=== PATIENT | female | born 1940 | race Caucasian/White ===

== ENCOUNTER 2024-05-15 09:04 | Emergency (ER) | payer MEDICARE, BC, SELFPAY ==
[2024-05-15] VITALS (21 sets, daily range): BP systolic 123–172; BP diastolic 66–84; PULSE 56–89; RESP 18; TEMP 35.6; O2SAT 91–100; BMI 25.2
--- NOTE | 2024-05-15 09:30 | CRLHL7_ITS ---
For Patients: As a result of the Century Cures Act, medical imaging exams and procedure reports are released immediately into your electronic medical record. You may view this report before your referring provider. If you have questions, please contact your health care provider. INDICATION: Left facial droop. COMPARISON: 03/30/2015 TECHNIQUE: CT of the head without intravenous contrast. Please note that all CT scans at this facility use dose modulation, iterative reconstruction, and/or weight-based dosing when appropriate to reduce radiation dose to as low as reasonably achievable. FINDINGS: Preserved pena-white matter differentiation. Chronic bilateral symmetrical cerebral white matter mildly heterogeneous hypodensities consistent with chronic ischemic gliotic changes. No hydrocephalus. No mass or mass effect. No intracranial hemorrhage. Intact skull base and cranial vault. Visualized orbits are without significant incidental findings. Visualized paranasal sinuses and mastoid air cells are clear. Right middle turbinate eveline bullosa. IMPRESSION: No acute infarct, intracranial mass, mass effect, hemorrhage or hydrocephalus. Please note that all CT scans at this facility use dose modulation, iterative reconstruction, and/or weight-based dosing when appropriate to reduce radiation dose to as low as reasonably achievable. Dictated by Onofre Infante MD @ 05/15/2024 9:48:42 AM (Electronically Signed)
--- NOTE | 2024-05-15 10:01 | CRLHL7_ITS ---
For Patients: As a result of the Century Cures Act, medical imaging exams and procedure reports are released immediately into your electronic medical record. You may view this report before your referring provider. If you have questions, please contact your health care provider. Indication: Left facial droop Technique: Multiplanar, multisequence MRI of the brain obtained without contrast. Comparison: Earlier same day CT head Findings: No evidence for recent hemorrhage or infarct. No midline shift, hydrocephalus or herniation. Generalized cerebral volume loss. Focal and confluent regions of white matter FLAIR hyperintensity, typical of chronic microangiopathy. A few punctate foci of susceptibility artifact at the right posterior cerebral hemisphere, suggestive of chronic microhemorrhages, with presumed demineralization changes at the bilateral basal ganglia. Unremarkable midline structures. Major expected intracranial flow voids are visualized. Hyperostosis frontalis interna. Minor ethmoid air cell mucosal thickening. No mastoid effusion. Bilateral lens implants. Impression: 1. No evidence of acute intracranial abnormality. 2. Generalized cerebral volume loss with moderately advanced chronic microangiopathy changes and a few chronic microhemorrhages. Dictated by Caro Seo MD @ 05/15/2024 12:02:13 PM (Electronically Signed)
[2024-05-15 10:32] LABS: Lactate* 1.6 mmol/L (0.5-1.9)
[2024-05-15 10:37] LABS: Basophils Percent Auto 0.2 % (0.0-3.0); Eosinophils Percent Auto 1.4 % (0.0-7.0); Hematocrit 43.9 % (33.0-51.0); Hemoglobin* 14.3 gm/dL (12.0-16.0); Immature Granulocytes Pct Auto 0.1 %; Lymphocytes Percent Auto 9.5 % (20-44); Mean Corpuscular HGB Conc 33 gm/dL (32-36); Mean Corpuscular Hemoglobin 27 pg (26-34); Mean Corpuscular Volume 84 fL (80-100); Monocytes Percent Auto 4.2 % (0.0-11.0); Neutrophils Percent Auto 84.6 % (42.0-72.0); Platelet Count* 262 K/uL (140-440); RDW Coefficient of Variation % 13.6 % (11.5-15.5); Red Blood Count 5.26 m/uL (4.00-5.20); White Blood Count* 12.52 K/uL (4.50-11.00)
[2024-05-15 10:55] LABS: PCR FLU A Negative PCR FLU A (Negative); PCR FLU B Negative PCR FLU B (Negative); PCR RSV Negative PCR RSV (Negative); SARS PCR* Negative SARS-CoV-2 (Negative)
--- NOTE | 2024-05-15 10:55 | ED.GENADULT ---
HPI - General Adult General Date Seen: 05/15/24 Chief complaint: Neuro Symptoms/Altered Deficit Stated complaint: Vomiting, sweaty, fast heartbeat Time Seen by Provider: 05/15/24 09:08 Source: patient Mode of arrival: ambulatory Limitations: no limitations History of Present Illness HPI narrative: Patient is an 83-year-old female history of dementia and beginning stages presenting to the emergency department for weakness, vomiting. Patient was doing well as morning. She is up in [place] visiting family. The at 08:00 o'clock she was normal but then shortly after that she told her family she was not feeling well and then proceeded to vomit. She also became diaphoretic at this time. Initially was unable to tell nursing staff who president or the date was. By time I spoke to a she did know who the print support specialist was. Did not know the month. Was able to state her age. Is able to follow all commands appropriately and seems to be answering most questions appropriately. No history of strokes before. No history of blood clots. Her states he check her blood pressure daily and usually in the 120s to low 130s in today was in the 160 systolic. She does not take any blood pressure medication. They also states she seemed a little bit more confused than normal. Is also abnormal for her to be weak. She then started complaining about shortness of breath and lab point they decided to bring her into the hospital. Denies any chest pain. States she has some mild abdominal pain. Denies headache, vision changes, numbness, diarrhea, constipation. Related Data Home Medications ?Medication ?Instructions ?Recorded ?Confirmed donepezil 10 mg tablet 10 mg PO QAM 05/15/24 05/15/24 memantine 5 mg tablet 5 mg PO BID 05/15/24 05/15/24 nitrofurantoin 1 cap PO BID 05/15/24 05/15/24 monohydrate/macrocrystals 100 mg capsule Previous Rx's ?Medication ?Instructions ?Recorded cephalexin 500 mg capsule 500 mg PO QID #20 caps 05/15/24 Allergies Allergy/AdvReac Type Severity Reaction Status Date / Time No Known Drug Allergies Allergy Verified 05/15/24 09:24 Review of Systems Status of ROS: Reports: 10 or more systems reviewed and unremarkable except as noted in History and below PFSH PFSH Social History Smoking Status: Never smoker Do you use any of these nicotine containing products: None Second hand tobacco smoke exposure: No How often do you have a drink containing alcohol: never How often do you have six or more drinks on one occasion: Never AUDIT-C Alcohol total score: 0 Non-prescribed substance use: denies use service: No Exam Narrative: Exam Narrative: Const: Well-nourished, Well-developed, in mild distress Eyes: PERRL, no conjunctival injection, and symmetrical lids HENT: Atraumatic external nose and ears. Moist mucous membranes. Neck: Symmetric, trachea midline, No thyromegaly. CVS: RRR, No murmurs or gallops. Peripheral pulses 2+ and equal in all extremities RESP: Unlabored respiratory effort. Clear to auscultation bilaterally. GI: Nontender/Nondistended, No rebound or guarding. MSK:Extremities w/o deformity, Normal Active ROM Skin: Warm, Dry. No rashes or lesions. Neuro: Normal Muscle tone, Cranial nerves 2-12 grossly intact other than some mild left facial droop, normal [id number]-[id number], normal [id number]-[id number], normal gait, normal strength 5/5 upper lower extremities bilaterally, normal sensation upper and lower extremities bilaterally, normal rapid alternating movements. Psych: Awake, Alert, & Oriented to self, place, situation. Appropriate mood and affect. Const: Vital Signs, click to edit/add: Vital Signs - 24 hr 05/15/24 09:18 05/15/24 09:41 05/15/24 09:43 Temperature 96.0 F L Pulse Rate 74 73 Pulse Rate [Left P ulse Oximeter] 63 Respiratory Rate 18 Blood Pressure 153/70 H Blood Pressure [Le ft Upper Arm] 168/75 H Pulse Oximetry 94 96 97 Oxygen Delivery Me thod Room Air 05/15/24 09:45 05/15/24 09:46 05/15/24 10:02 Temperature Pulse Rate 72 77 Pulse Rate [Left P ulse Oximeter] Respiratory Rate Blood Pressure 123/84 172/67 H Blood Pressure [Le ft Upper Arm] Pulse Oximetry 96 97 Oxygen Delivery Me thod 05/15/24 10:06 05/15/24 10:15 05/15/24 10:17 Temperature Pulse Rate 74 75 81 Pulse Rate [Left P ulse Oximeter] Respiratory Rate Blood Pressure 167/66 H Blood Pressure [Le ft Upper Arm] Pulse Oximetry 99 99 98 Oxygen Delivery Me thod 05/15/24 10:18 05/15/24 10:30 05/15/24 10:32 Temperature Pulse Rate 59 L 65 56 L Pulse Rate [Left P ulse Oximeter] Respiratory Rate Blood Pressure 161/70 H Blood Pressure [Le ft Upper Arm] Pulse Oximetry 97 96 100 Oxygen Delivery Me thod 05/15/24 10:45 05/15/24 10:47 05/15/24 11:00 Temperature Pulse Rate 74 68 70 Pulse Rate [Left P ulse Oximeter] Respiratory Rate Blood Pressure 152/71 H Blood Pressure [Le ft Upper Arm] Pulse Oximetry 91 96 94 Oxygen Delivery Me thod 05/15/24 11:01 05/15/24 11:15 05/15/24 11:17 Temperature Pulse Rate 60 64 74 Pulse Rate [Left P ulse Oximeter] Respiratory Rate Blood Pressure 162/72 H 157/71 H Blood Pressure [Le ft Upper Arm] Pulse Oximetry 96 99 99 Oxygen Delivery Me thod 05/15/24 12:11 05/15/24 12:15 05/15/24 12:30 Temperature Pulse Rate 89 82 82 Pulse Rate [Left P ulse Oximeter] Respiratory Rate Blood Pressure Blood Pressure [Le ft Upper Arm] Pulse Oximetry 97 97 98 Oxygen Delivery Me thod Course Vital Signs Vital signs: Initial Vital Signs Temperature 96.0 F L 05/15/24 09:18 Temperature Source Temporal Artery Scan 05/15/24 09:18 Pulse Rate 63 05/15/24 09:18 Pulse Rhythm Regular 05/15/24 09:18 Pulse Strength 3+ Normal 05/15/24 09:18 Respiratory Rate 18 05/15/24 09:18 Blood Pressure 168/75 H 05/15/24 09:18 Blood Pressure Mean 106 H 05/15/24 09:18 Blood Pressure Position Sitting 05/15/24 09:18 Pulse Oximetry 94 05/15/24 09:18 Oxygen Delivery Method Room Air 05/15/24 09:18 Vital Signs Temperature 96.0 F L 05/15/24 09:18 Pulse Rate 63 05/15/24 09:18 Respiratory Rate 18 05/15/24 09:18 Blood Pressure 168/75 H 05/15/24 09:18 Pulse Oximetry 94 05/15/24 09:18 Oxygen Delivery Method Room Air 05/15/24 09:18 Temperature 96.0 F L 05/15/24 09:18 Pulse Rate 82 05/15/24 12:30 Respiratory Rate 18 05/15/24 09:18 Blood Pressure 157/71 H 05/15/24 11:17 Pulse Oximetry 98 05/15/24 12:30 Oxygen Delivery Method Room Air 05/15/24 09:18 Medical Decision Making [facility] Narrative Medical decision making narrative: Patient is an 83-year-old female with a history of dementia presenting for generalized weakness and increased confusion. During my exam I noted she had some very slight left facial droop and I called a code stroke. I spoke to Dr. Wilson and explained she mostly has sternal I symptoms but there was this mild left facial droop. CT head was ordered and he recommend to go straight to an MRI after that. This was also ordered. Symptoms seem most likely related to some type of infection as she is diaphoretic and already has dementia. She has some mild abdominal tenderness is mildly short of breath. Will do a D-dimer to look for signs of a PE. Also were COVID/flu/RSV, troponin, CBC, CMP, lactate, urinalysis, EKG. D-dimer within normal limits and CT scan of the chest without contrast and a CT scan of the abdomen pelvis with contrast was ordered. CBC is slightly high white count 12.52 in she also has a temperature of 96? and less meets SIRS criteria. Lactate was ordered. I did offer IV fluids but family prefers oral fluids at this time as she is doing much better. Rest of CBC/CMP shows no concerning abnormalities. Troponin within normal limits. EKG has a slightly elongated QT interval but she overall is looking well is not having any lightheadedness or dizziness. Do not believe this is related to her symptoms at this time. Urinalysis shows +1 leukocyte esterase with blood in the urine and a few bacteria but no clear sign of UTI. COVID/flu/RSV is negative. CT scan of the head MRI showed no acute concerning abnormality. No signs of a stroke at this time. CT scan of the chest showed signs of a burst breast implant. Patient is not having any pain here at this time. This can be managed outpatient does not require any emergent surgery. CT scan abdomen pelvis shows signs of cystitis. There is also a large fecal burden in the rectum. When I spoke to the patient about constipation she has been having issues with it but has not taking anything recently for her constipation since she arrived from [place]. After this though she was able to have a large bowel movement and I do not believe rectal disimpaction is necessary at this time. Did inform her to take stool softeners daily. Her and her family agreeable to this plan. They states she is acting back to normal and they feel safe for discharge. I spoke to her and her family about admission versus discharge been considering her great improvement in her symptoms and overall feeling much better a feels safe for discharge. They state they are staying only 1/2 mi away and will return immediately if any symptoms worsen again. I will treat this as a UTI based off the CT results. Did do a lactate and it is slightly elevated 2.4 she otherwise looks wonderful and is moving around the room and able to walk to the bathroom without any issues. Family states she is completely back to normal at this time. Considering all of this I do believe she is safe for discharge as she looks otherwise good. Strict return precautions were given. They are agreeable to this plan. She will be started on Keflex. Lab Data Labs: Lab Results 05/15/24 05/15/24 05/15/24 Range/Units 10:26 11:28 12:49 WBC 12.52 H (4.50-11.00) K/uL RBC 5.26 H (4.00-5.20) m/uL Hgb 14.3 (12.0-16.0) gm/dL Hct 43.9 (33.0-51.0) % MCV 84 (80-100) fL MCH 27 (26-34) pg MCHC 33 (32-36) gm/dL RDW Coeff of Jonathan 13.6 (11.5-15.5) % Plt Count 262 (140-440) K/uL Neut % (Auto) 84.6 H (42.0-72.0) % Lymph % (Auto) 9.5 L (20-44) % [place] % (Auto) 4.2 (0.0-11.0) % Eos % (Auto) 1.4 (0.0-7.0) % Baso % (Auto) 0.2 (0.0-3.0) % Neut # (Auto) 10.60 H (1.7-7.0) K/uL Lymph # (Auto) 1.20 (0.90-2.90) K/uL [place] # (Auto) 0.50 (0.00-0.90) K/UL Eos # (Auto) 0.20 (0.00-0.50) K/uL Baso # (Auto) 0.00 (0.00-0.30) K/uL Abs Immat Gran (auto) 0.00 (0.00-0.30) K/uL Imm/Tot Granulo (auto) 0.1 % D-Dimer Quant (PE/DVT) 0.39 (0.00-0.50) ug/ml Sodium 139 (135-149) mmol/L Potassium 3.8 (3.6-5.1) mmol/L Chloride 108 (96-114) mmol/L Carbon Dioxide 23 (20-32) mmol/L Anion Gap 8 (7-15) mEq/L BUN 17 (7-30) mg/dL Creatinine 0.9 (0.5-1.5) mg/dL Estimated Creat Clear 34.90 Estimated GFR 64 ml/min Glucose 124 H (60-115) mg/dL Lactate 1.6 (0.5-1.9) mmol/L Calcium 9.5 (8.4-10.6) mg/dL Total Bilirubin 0.8 (0.1-1.5) mg/dL AST 33 (12-35) U/L ALT 19 (4-35) U/L Alkaline Phosphatase 92 (40-150) U/L Troponin I < 0.01 L (0.01-0.04) ng/mL Total Protein 7.4 (6.0-8.3) g/dL Albumin 4.4 (3.3-5.0) g/dL Urine Color Yellow (Yellow) Urine Appearance Clear (Clear) Urine pH 7.5 (5.0-8.5) Ur Specific [place] 1.020 (1.000-1.030) Urine Protein Negative (Negative) Urine Glucose (UA) Negative (Negative) Urine Ketones Negative (Negative) Urine Blood 2+ A (Negative) Urine Nitrite Negative (Negative) Urine Bilirubin Negative (Negative) Urine Urobilinogen 0.2 (0.2-1.0) Ur Leukocyte Esterase 1+ A (Negative) Urine RBC 2-5 A (0-2) Urine WBC 2-5 (0-5) Ur Squamous Epith Cells None (None-Few) Urine Bacteria Few A (None) SARS-CoV-2 (PCR) (Negative) Influenza Type A (PCR) (Negative) Influenza Type B (PCR) (Negative) RSV (PCR) (Negative) Lab Acknowledgement New Spec Needed 05/15/24 05/15/24 Range/Units 13:01 Unknown WBC (4.50-11.00) K/uL RBC (4.00-5.20) m/uL Hgb (12.0-16.0) gm/dL Hct (33.0-51.0) % MCV (80-100) fL MCH (26-34) pg MCHC (32-36) gm/dL RDW Coeff of Jonathan (11.5-15.5) % Plt Count (140-440) K/uL Neut % (Auto) (42.0-72.0) % Lymph % (Auto) (20-44) % [place] % (Auto) (0.0-11.0) % Eos % (Auto) (0.0-7.0) % Baso % (Auto) (0.0-3.0) % Neut # (Auto) (1.7-7.0) K/uL Lymph # (Auto) (0.90-2.90) K/uL [place] # (Auto) (0.00-0.90) K/UL Eos # (Auto) (0.00-0.50) K/uL Baso # (Auto) (0.00-0.30) K/uL Abs Immat Gran (auto) (0.00-0.30) K/uL Imm/Tot Granulo (auto) % D-Dimer Quant (PE/DVT) (0.00-0.50) ug/ml Sodium (135-149) mmol/L Potassium (3.6-5.1) mmol/L Chloride (96-114) mmol/L Carbon Dioxide (20-32) mmol/L Anion Gap (7-15) mEq/L BUN (7-30) mg/dL Creatinine (0.5-1.5) mg/dL Estimated Creat Clear Estimated GFR ml/min Glucose (60-115) mg/dL Lactate 2.4 H (0.5-1.9) mmol/L Calcium (8.4-10.6) mg/dL Total Bilirubin (0.1-1.5) mg/dL AST (12-35) U/L ALT (4-35) U/L Alkaline Phosphatase (40-150) U/L Troponin I (0.01-0.04) ng/mL Total Protein (6.0-8.3) g/dL Albumin (3.3-5.0) g/dL Urine Color (Yellow) Urine Appearance (Clear) Urine pH (5.0-8.5) Ur Specific [place] (1.000-1.030) Urine Protein (Negative) Urine Glucose (UA) (Negative) Urine Ketones (Negative) Urine Blood (Negative) Urine Nitrite (Negative) Urine Bilirubin (Negative) Urine Urobilinogen (0.2-1.0) Ur Leukocyte Esterase (Negative) Urine RBC (0-2) Urine WBC (0-5) Ur Squamous Epith Cells (None-Few) Urine Bacteria (None) SARS-CoV-2 (PCR) Negative SARS-CoV-2 (Negative) Influenza Type A (PCR) Negative PCR FLU A (Negative) Influenza Type B (PCR) Negative PCR FLU B (Negative) RSV (PCR) Negative PCR RSV (Negative) Lab Acknowledgement Imaging Data CT scan - head: Attestation: I have reviewed the pertinent imaging results. Radiologist's impression: No acute infarct, intracranial mass, mass effect, hemorrhage or hydrocephalus. Please note that all CT scans at this facility use dose modulation, iterative reconstruction, and/or weight-based dosing when appropriate to reduce radiation dose to as low as reasonably achievable. Dictated by Onofre Infante MD @ 05/15/2024 9:48:42 AM MR Brain: Attestation: I have reviewed the pertinent imaging results. Radiologist's impression: 1. No evidence of acute intracranial abnormality. 2. Generalized cerebral volume loss with moderately advanced chronic microangiopathy changes and a few chronic microhemorrhages. Dictated by Caro Seo MD @ 05/15/2024 12:02:[address] scan - chest: Attestation: I have reviewed the pertinent imaging results. Radiologist's impression: 1. No focal consolidation. Few small foci of mucous plugging in the right upper lobe. 2. Evidence of capsular rupture of the right breast implant. Please note that all CT scans at this facility use dose modulation, iterative reconstruction, and/or weight-based dosing when appropriate to reduce radiation dose to as low as reasonably achievable. Dictated by Claire Rivera MD @ 05/15/2024 12:48:[address] scan - abdomen/pelvis: Attestation: I have reviewed the pertinent imaging results. Radiologist's impression: 1. Diffuse circumferential urinary bladder wall thickening with pericystic inflammation, compatible with cystitis. 2. Large fecal burden is present within the rectum, which may reflect constipation. 3. Incidentally noted small focal enhancing nodules along the duodenal wall, indeterminate. Recommend further evaluation with endoscopy, on a nonemergent basis. Please note that all CT scans at this facility use dose modulation, iterative reconstruction, and/or weight-based dosing when appropriate to reduce radiation dose to as low as reasonably achievable. Dictated by Claire Rivera MD @ 05/15/2024 12:34:17 PM ECG Data Attestation: I personally reviewed and interpreted this ECG as follows: Prior ECG tracings: not available for review Interpretation: Normal sinus rhythm a rate of 66 beats per minute, mildly prolonged QT interval, other intervals are normal. No ST or T-wave abnormalities. Discharge Plan Discharge Clinical Impression: Urinary tract infection Qualifiers: Urinary tract infection type: acute cystitis Hematuria presence: with hematuria Qualified Code(s): N30.01 - Acute cystitis with hematuria Patient Disposition: Home w/ Parent or Adult Condition: Improved Instructions: Urinary Tract Infection in Older Adults (ED) Additional Instructions: Have her take her antibiotics as directed. Make sure she is using stool softeners until she is having normal bowel movement. With CT scan of her abdomen and pelvis also found some nodules along the beginning of the small intestine. She should have an outpatient endoscopy done on a nonemergent basis. If she develops worsening symptoms again please return to the emergency department immediately. Prescriptions: New cephalexin 500 mg capsule 500 mg PO QID Qty: 20 0RF No Action donepezil 10 mg tablet 10 mg PO QAM memantine 5 mg tablet 5 mg PO BID nitrofurantoin monohyd/m-cryst 100 mg capsule 1 cap PO BID Follow Up/Referrals: Provider,Not a Local [Primary Care Provider] - Stand Alone Forms: [facility] Info Instructions
[2024-05-15 10:59] LABS: Albumin* 4.4 g/dL (3.3-5.0); Chloride* 108 mmol/L (96-114); Potassium* 3.8 mmol/L (3.6-5.1); Sodium* 139 mmol/L (135-149)
[2024-05-15 11:01] LABS: Creatinine* 0.9 mg/dL (0.5-1.5); Estimated Glomerular Filt Rate 64 ml/min
[2024-05-15 11:02] LABS: Alanine Aminotransferase* 19 U/L (4-35); Alkaline Phosphatase* 92 U/L (40-150); Anion Gap 8 mEq/L (7-15); Aspartate Amino Transferase* 33 U/L (12-35); Bilirubin Total* 0.8 mg/dL (0.1-1.5); Blood Urea Nitrogen* 17 mg/dL (7-30); Calcium* 9.5 mg/dL (8.4-10.6); Carbon Dioxide* 23 mmol/L (20-32); Glucose* 124 mg/dL (60-115); Slide Review Reflex No; Total Protein* 7.4 g/dL (6.0-8.3)
[2024-05-15 11:03] LABS: D Dimer Quantitative* 0.39 ug/ml (0.00-0.50)
[2024-05-15 11:14] LABS: Troponin I* < 0.01 ng/mL (0.01-0.04)
--- NOTE | 2024-05-15 11:25 | CRLHL7_ITS ---
For Patients: As a result of the Century Cures Act, medical imaging exams and procedure reports are released immediately into your electronic medical record. You may view this report before your referring provider. If you have questions, please contact your health care provider. INDICATION: Shortness of breath. TECHNIQUE: CT chest without IV contrast. COMPARISON: None. FINDINGS: Lungs and pleura: No focal consolidation. Few small foci of mucous plugging in the right upper lobe. Heart and vasculature: No cardiomegaly, no pericardial effusion. Atherosclerotic coronary artery calcifications. Thyroid and lower neck: No suspicious thyroid nodule. Mediastinum/sarath: No lymphadenopathy. Chest wall: No axillary lymphadenopathy. Bilateral breast implants. Evidence of capsular rupture of the right breast implant. Upper abdomen: See separate report of same day CT abdomen/pelvis. Bones: Multilevel degenerative changes of the spine. Bones are osteopenic. T8 vertebral body hemangioma noted. IMPRESSION: 1. No focal consolidation. Few small foci of mucous plugging in the right upper lobe. 2. Evidence of capsular rupture of the right breast implant. Please note that all CT scans at this facility use dose modulation, iterative reconstruction, and/or weight-based dosing when appropriate to reduce radiation dose to as low as reasonably achievable. Dictated by Claire Rivera MD @ 05/15/2024 12:48:03 PM (Electronically Signed)
--- NOTE | 2024-05-15 11:25 | CRLHL7_ITS ---
For Patients: As a result of the Century Cures Act, medical imaging exams and procedure reports are released immediately into your electronic medical record. You may view this report before your referring provider. If you have questions, please contact your health care provider. INDICATION: Diffuse abdominal pain. TECHNIQUE: CT abdomen and pelvis acquired with 68 mL Isovue 370 contrast. COMPARISON: None. FINDINGS: Lower chest: See separate report of same day CT chest. Liver: No suspicious focal hepatic lesion. Gallbladder and bile ducts: Unremarkable. Pancreas: Unremarkable. Spleen: To small to characterize hypodense lesion in the inferior spleen, statistically benign. Adrenal glands: Unremarkable. Kidneys: Kidneys enhance symmetrically, without hydronephrosis. 3.0 cm simple appearing exophytic cyst in the lower pole of the left kidney, as well as multiple small left parapelvic cysts. Additional too small to characterize hypodense bilateral renal lesions are noted. Retroperitoneum: No lymphadenopathy. Bowel and mesentery: Large fecal burden is present within the rectum. Scattered colonic diverticulosis, without evidence of acute diverticulitis. No significant ascites. There are small focal enhancing nodules along the duodenal wall, for example a 0.6 cm nodule in the 3rd portion of the duodenum (series 2, image 48). Bladder: Diffuse circumferential bladder wall thickening with pericystic inflammation. Reproductive organs: Post hysterectomy. Pelvic lymph nodes: No lymphadenopathy. Vessels: Scattered atherosclerotic calcifications. Abdominal wall: No acute abdominal wall abnormality. Bones: Multilevel degenerative changes of the spine. Bones are osteopenic. IMPRESSION: 1. Diffuse circumferential urinary bladder wall thickening with pericystic inflammation, compatible with cystitis. 2. Large fecal burden is present within the rectum, which may reflect constipation. 3. Incidentally noted small focal enhancing nodules along the duodenal wall, indeterminate. Recommend further evaluation with endoscopy, on a nonemergent basis. Please note that all CT scans at this facility use dose modulation, iterative reconstruction, and/or weight-based dosing when appropriate to reduce radiation dose to as low as reasonably achievable. Dictated by Claire Rivera MD @ 05/15/2024 12:34:17 PM (Electronically Signed)
[2024-05-15 11:37] LABS: Appearance Urine Clear (Clear); Bilirubin Urine Negative (Negative); Blood Urine 2+ (Negative); Color Urine Yellow (Yellow); Glucose Urine Negative (Negative); Ketones Urine Negative (Negative); Leukocyte Esterase Urine 1+ (Negative); Nitrite Urine Negative (Negative); Protein Urine Negative (Negative); Urobilinogen Urine 0.2 (0.2-1.0); pH Urine 7.5 (5.0-8.5)
[2024-05-15 11:54] LABS: Bacteria Urine Few
[2024-05-15 12:51] LABS: Lab Add On Test New Spec Needed
[2024-05-15 13:05] LABS: Lactate* 2.4 mmol/L (0.5-1.9)
== END 2024-05-15 14:17 | disposition home or self-care (01) ==
PROVIDERS: Emergency Provider Student in an Organized Health Care Education/Training Program
DX: N30.01 Acute cystitis with hematuria (principal)
CPT/HCPCS: 36415; 70450; 70551; 71250; 74177; 80053; 81001; 83605; 84484; 85025; 85379; 87086; 87186; 87631; 93005; 99284; 99285; Q9967